=== PATIENT | female | born 1990 | race Caucasian/White ===

== ENCOUNTER 2018-11-24 15:33 | Emergency (ER) | payer OTHER ==
[~2018-11-24] VITALS: Ht 147.3 cm; Wt 80.7 kg
[2018-11-24] MEDS ORDERED: PROTONIX40 MG (17:26)
== END 2018-11-24 18:50 | disposition home or self-care (01) ==
LOC: ER 15:33
DX: R53.81 Other malaise (principal); R07.89 Other chest pain; R53.1 Weakness